=== PATIENT | male | born 1980 | race Caucasian/White ===

== ENCOUNTER 2024-08-26 16:58 | Emergency (ER) | payer BC ==
[~2024-08-26] VITALS: Ht 170.2 cm; Wt 72.6 kg
[2024-08-26] MEDS ORDERED: Diphth,Pertuss(Acell),Tet Vac 0.5 ML VIAL IM ONE (17:10)
[2024-08-26] MEDS ORDERED: CeFAZolin Sodium 1,000 MG in NS 50 ML IV ONE (17:10)
[2024-08-26] MEDS ORDERED: CeFAZolin Sodium 2,000 MG in NS 100 ML IV ONE (17:10)
[2024-08-26] MEDS ORDERED: Morphine Sulfate 4 MG/1 ML Injection IV ONE (17:10)
[2024-08-26 17:44] LABS: BASOPHILS ABSOLUTE AUTO 0.02 K/mm3 (0.00-0.23); BASOPHILS PERCENT AUTO 0 % (0-2); EOSINOPHILS ABSOLUTE AUTO 0.03 K/mm3 (0.00-0.68); EOSINOPHILS PERCENT AUTO 1 % (0-6); Hematocrit 39.5 % (37.0-53.0); Hemoglobin 13.4 g/dL (13.5-17.5); IMMATURE GRAN ABSOLUTE AUTO 0.02 K/mm3 (0.00-0.10); IMMATURE GRAN PERCENT AUTO 0 % (0-1); LYMPHOCYTES ABSOLUTE AUTO 2.86 K/mm3 (0.84-5.20); LYMPHOCYTES PERCENT AUTO 44 % (21-46); MONOCYTES ABSOLUTE AUTO 0.46 K/mm3 (0.16-1.47); MONOCYTES PERCENT AUTO 7 % (4-13); Mean Corpuscular HGB 30.2 pg (26.0-34.0); Mean Corpuscular HGB Conc 33.9 g/dL (31.5-36.5); Mean Corpuscular Volume 89 fL (80-100); Mean Platelet Volume 9.4 fL (9.1-12.4); NEUTROPHILS ABSOLUTE AUTO 3.06 K/mm3 (1.96-9.15); NEUTROPHILS PERCENT AUTO 48 % (41-73); Platelet Count 202 K/mm3 (150-400); RDW Coefficient Variation 11.9 % (11.7-14.2); Red Blood Cell Count 4.43 M/mm3 (4.30-5.90); White Blood Cell Count 6.45 K/mm3 (4.00-11.30)
[2024-08-26 18:12] LABS: Bun/Creatinine Ratio 18.8 (12.0-20.0); Creatinine, Blood 1.12 mg/dL (0.60-1.20); Potassium, Blood 3.6 mmol/L (3.5-5.5)
[2024-08-26] MEDS ORDERED: ERGO50000 PO (18:28)
[2024-08-26 20:46] VITALS: BP 138/64
[2024-08-26] MEDS ORDERED: OXYACE7.5T PO (21:27)
[2024-08-26] MEDS ORDERED: IBUP600 PO (21:27)
[2024-08-26] MEDS ORDERED: ACET500 PO (21:27)
[2024-08-26] MEDS ORDERED: AMOCLA875 PO (21:27)
== END 2024-08-26 23:02 | disposition home or self-care (01) ==
LOC: ER 16:58
PROVIDERS: Emergency Medicine
DX: S68.521A Partial traumatic transphalangeal amputation of right thumb, initial encounter (principal); W22.8XXA Striking against or struck by other objects, initial encounter
CPT/HCPCS: 26952; 73140; 80048; 85025; 90471; 90715; 96374-59; 99283-25; J0690; J2270

== ENCOUNTER 2024-12-14 11:34 | Day surgery (SDC) | payer BC ==
[~2024-12-14] VITALS: Ht 172.7 cm; Wt 71.3 kg
[~2024-12-14 11:34] MED LIST: ACET500 PO; AMOCLA875 PO; ERGO50000 PO; IBUP600 PO; OXYACE7.5T PO
[2024-12-14] MEDS ORDERED: Tranexamic Acid 100 ML IV SCH (12:05)
[2024-12-14] MEDS ORDERED: CeFAZolin Sodium 2,000 MG in NS 100 ML IV SCH (12:05)
[2024-12-14 12:11] VITALS: BP 133/80
--- NOTE | 2024-12-14 12:41 | NUR ---
History, Chart, Medications and Allergies reviewed before start of procedure. Lungs clear T/O to Auscultation. Patient confirms NPO status and agrees with scheduled surgery. Pre-Op teaching done. Pt verbalizes understanding. Ambulatory in Day Surgery
[2024-12-14] MEDS ORDERED: Bupivacaine 0.5% W/EPI 1:200000 SDV 30 ML Vial ONE (13:10)
[2024-12-14 13:50] VITALS: BP 120/73
--- NOTE | 2024-12-14 14:00 | NUR ---
Discharge instructions reviewed with patient. Patient verbalizes understanding. Copy given to patient to take home. Pt recieved no sedation. Released from day surgery, steady gait.
--- NOTE | 2024-12-14 14:06 | NUR ---
12/14/24 1406 Belkys Chinchilla VITAL SIGNS MONITORED BY BELKYS CHINCHILLA RN 1316 BP 137/84 HR 68 SP02 100% 1321 BP 137/85 HR 66 SPO2 100% 1327 BP 128/80 HR 70 SPO2 100% 1333 BP 118/72 HR 69 SPO2 100%
== END 2024-12-14 14:00 | disposition home or self-care (01) ==
LOC: ORSCMMR 11:34 → ORD 13:00 → ORSCMMR 14:00
PROVIDERS: Orthopaedic Surgery Sports Medicine
PROC: 0HTQXZZ Resection of Finger Nail, External Approach (ICD-10-PCS; principal; 2024-12-14 13:00)
DX: L60.2 Onychogryphosis (principal)
CPT/HCPCS: J0690; J7120